=== PATIENT | male | born 1965 | race Native Hawaiian/Other Pacific Islander ===

== ENCOUNTER 2019-05-17 17:51 | Emergency (ER) | payer OTHER ==
[~2019-05-17] VITALS: Ht 175.3 cm; Wt 88.5 kg
[2019-05-17 17:51] VITALS: BP 122/77; TEMP 97.9
[2019-05-17 18:48] LABS: PLATELET COUNT 257 K/uL (142-355)
[2019-05-17 18:51] LABS: POTASSIUM 3.6 mmol/L (3.6-5.2)
[2019-05-17] MEDS ORDERED: VITAMIN D31000 UNI1 PO (23:16)
[2019-05-17] MEDS ORDERED: TRAZ50TA36 PO (23:18)
[2019-05-17] MEDS ORDERED: DIVA250T PO (23:22)
[2019-05-17] MEDS ORDERED: FISH OIL1000 MG PO (23:23)
[2019-05-17] MEDS ORDERED: KEPPRA1000 MG PO (23:24)
[2019-05-17] MEDS ORDERED: HYDROXYZINE PO (23:29)
[2019-05-17] MEDS ORDERED: DOXEPIN HCL10 MG PO (23:30)
[2019-05-17] MEDS ORDERED: APRAZOLAM PO ×3 (23:32→23:35)
[2019-05-17] MEDS ORDERED: DOCU100C10 PO (23:42)
[2019-05-17] MEDS ORDERED: AMANTADINE100 MG PO (23:43)
[2019-05-17] MEDS ORDERED: TYLENOL325 MG PO (23:45)
[2019-05-17] MEDS ORDERED: TRAZODONE HYDR150 MG PO (23:46)
[2019-05-17] MEDS ORDERED: RISP0.5T2 PO (23:49)
== END 2019-05-17 18:17 | disposition other institution (70) ==
LOC: ED 17:58
PROVIDERS: Family Medicine
DX: R46.89 Other symptoms and signs involving appearance and behavior (principal); Z72.811 Adult antisocial behavior; Z04.6 Encounter for general psychiatric examination, requested by authority
CPT/HCPCS: 80053; 81000; 85027; 93005; 99283; 99285